=== PATIENT | female | born 1960 | race Caucasian/White ===

== ENCOUNTER → 2016-06-18 | Outpatient (CLI) | payer MEDICAID ==
[2016-06-18 08:12] LABS: Basophils # (A) 0.1 k/uL (0-0.2); Basophils % (A) 1 %; CH 32.1; CHCM 34.3; Eosinophils # (A) 0.3 k/uL (0-0.7); Eosinophils % (A) 3 %; HGB 16.8 gm/dL (11.4-16.0); Luc # (Auto) 0.15; Luc % (Auto) 2; Lymphocytes # (A) 2.5 k/uL (1.0-4.8); Lymphocytes % (A) 32 %; MCH 30.9 pg (25.0-35.0); MCHC 32.9 g/dL (31.0-37.0); Mean Platelet Volume 7.7; Monocytes # (A) 0.3 k/uL (0-1.0); Monocytes % (A) 4 %; Neutrophils # (A) 4.7 k/uL (1.3-7.7); Neutrophils % (A) 59 %; RBC 5.42 m/uL (3.80-5.40); RDW 12.9 % (11.5-15.5); WBC (Perox) 8.35
[2016-06-18 08:18] LABS: ALT 65 U/L (9-52); AST 40 U/L (14-36); Alkaline Phosphatase 59 U/L (38-126); Anion Gap 11 mmol/L; Bilirubin, Delta 0.3 mg/dL (0.0-0.2); Blood Urea Nitrogen 16 mg/dL (7-17); Calcium 9.7 mg/dL (8.4-10.2); Carbon Dioxide 23 mmol/L (22-30); Chloride 109 mmol/L (98-107); Cholesterol 214 mg/dL (<200); Glucose 101 mg/dL (74-99); HDL Cholesterol 41 mg/dL (40-60); Magnesium 1.9 mg/dL (1.6-2.3); Non-African American GFR(MDRD) >60 (>60 ml/min/1.73 sqM); Sodium 143 mmol/L (137-145); Total Bilirubin 0.6 mg/dL (0.2-1.3); Total Protein 7.5 g/dL (6.3-8.2); Triglycerides 154 mg/dL (<150)
== END | disposition home or self-care (01) ==
LOC: LABWHC1 07:38
PROVIDERS: ATTEND Family Medicine
DX: I10 Essential (primary) hypertension (principal)
CPT/HCPCS: 36415; 80053; 80061; 82248; 82306; 83735; 84439; 84443; 85025

== ENCOUNTER → 2016-11-25 | Outpatient (CLI) | payer MEDICAID ==
--- NOTE | 2016-11-25 17:18 | US ---
EXAMINATION TYPE: US venous doppler duplex LE BI DATE OF EXAM: 11/25/2016 5:06 PM COMPARISON: NONE CLINICAL HISTORY: Edema R60.0, M79.604/M79.605 Leg pain-bilateral. Bilateral leg pain SIDE PERFORMED: Bilateral TECHNIQUE: The lower extremity deep venous system is examined utilizing real time linear array sonog claudia with graded compression, doppler sonography and color-flow sonography. VESSELS IMAGED: External Iliac Vein (EIV) Common Femoral Vein Deep Femoral Vein Greater Saphenous Vein * Femoral Vein Popliteal Vein Small Saphenous Vein * Proximal Calf Veins (* superficial vessels) Right Leg: Appears negative for DVT Left Leg: Appears negative for DVT IMPRESSION: Negative exam. No evidence of deep venous thrombosis in left and right leg.
== END ==
LOC: RADUSWWP 16:31
PROVIDERS: ATTEND Family Medicine
DX: M79.604 Pain in right leg (principal); M79.605 Pain in left leg; R60.0 Localized edema
CPT/HCPCS: 93970

== ENCOUNTER → 2016-12-01 | Outpatient (CLI) | payer MEDICAID ==
--- NOTE | 2016-12-07 10:52 | P.ARTDOP ---
Arterial Doppler LOWER EXTREMITY ARTERIAL DOPPLER: DATE OF SERVICE: 12/01/2016 Reason for study: Foot pain with walking. Doppler waveforms: Multiphasic bilaterally throughout. Pulse volume recording: []. Pressure gradients: None. Ankle-brachial indices: Greater than 1 bilaterally. Toe pressures: 78 on the right, 97 on the left Impression: Normal proximal study. Some decrease in toe pressure, probably related to vasospastic phenomenon. Distal disease less likely..
== END ==
LOC: RADUSWWP 11:45
PROVIDERS: ATTEND Family Medicine
DX: R60.0 Localized edema (principal); M79.661 Pain in right lower leg
CPT/HCPCS: 93922

== ENCOUNTER → 2016-12-03 | Outpatient (CLI) | payer MEDICAID ==
[2016-12-03 09:15] LABS: Basophils % (A) 1 %; CH 31.8; CHCM 34.4; Eosinophils # (A) 0.3 k/uL (0-0.7); Eosinophils % (A) 4 %; HCT 46.7 % (34.0-46.0); HDW 2.62; HGB 15.9 gm/dL (11.4-16.0); Luc # (Auto) 0.09; Luc % (Auto) 1; Lymphocytes # (A) 2.4 k/uL (1.0-4.8); Lymphocytes % (A) 32 %; MCH 31.7 pg (25.0-35.0); MCHC 34.2 g/dL (31.0-37.0); MCV 92.9 fL (80.0-100.0); Mean Platelet Volume 7.3; Monocytes # (A) 0.3 k/uL (0-1.0); Monocytes % (A) 4 %; Neutrophils # (A) 4.4 k/uL (1.3-7.7); Neutrophils % (A) 59 %; RBC 5.02 m/uL (3.80-5.40); WBC 7.5 k/uL (3.8-10.6); WBC (Perox) 7.53
[2016-12-03 09:18] LABS: ALT 58 U/L (9-52); AST 33 U/L (14-36); Alkaline Phosphatase 58 U/L (38-126); Anion Gap 8 mmol/L; Blood Urea Nitrogen 13 mg/dL (7-17); Calcium 9.8 mg/dL (8.4-10.2); Carbon Dioxide 27 mmol/L (22-30); Chloride 107 mmol/L (98-107); Cholesterol 193 mg/dL (<200); Glucose 92 mg/dL (74-99); HDL Cholesterol 38 mg/dL (40-60); Non-African American GFR(MDRD) >60 (>60 ml/min/1.73 sqM); Potassium 4.6 mmol/L (3.5-5.1); Sodium 142 mmol/L (137-145); Total Bilirubin 0.6 mg/dL (0.2-1.3); Total Protein 7.3 g/dL (6.3-8.2)
[2016-12-03 10:05] LABS: Hepatitis C Virus IgG Ab Negative (Negative); Hepatitis C Virus IgG Index 0.09
[2016-12-03 12:49] LABS: Vitamin B12 369 pg/mL (239-931)
== END ==
LOC: LABWHC1 08:23
PROVIDERS: ATTEND Family Medicine
DX: Z00.01 Encounter for general adult medical examination with abnormal findings (principal); R60.0 Localized edema; R53.83 Other fatigue; G35 Multiple sclerosis; R00.2 Palpitations
CPT/HCPCS: 36415; 80053; 80061; 82306; 82607; 84443; 85025; 86803

== ENCOUNTER → 2017-06-10 | Outpatient (CLI) | payer MEDICAID ==
[2017-06-10 12:40] LABS: Basophils % (A) 0 %; Eosinophils # (A) 0.3 k/uL (0-0.7); Eosinophils % (A) 3 %; HCT 49.6 % (34.0-46.0); HGB 15.9 gm/dL (11.4-16.0); Lymphocytes # (A) 2.9 k/uL (1.0-4.8); Lymphocytes % (A) 30 %; MCH 29.7 pg (25.0-35.0); MCHC 32.1 g/dL (31.0-37.0); MCV 92.4 fL (80.0-100.0); Mean Platelet Volume 7.9; Monocytes # (A) 0.4 k/uL (0-1.0); Monocytes % (A) 4 %; Neutrophils # (A) 6.1 k/uL (1.3-7.7); Neutrophils % (A) 62 %; Platelet Count 260 k/uL (150-450); RBC 5.37 m/uL (3.80-5.40); RDW 13.2 % (11.5-15.5); WBC 9.8 k/uL (3.8-10.6)
[2017-06-10 12:56] LABS: Albumin 4.2 g/dL (3.5-5.0); Calcium 9.8 mg/dL (8.4-10.2); Potassium 4.3 mmol/L (3.5-5.1); Total Bilirubin 0.5 mg/dL (0.2-1.3); Total Protein 7.6 g/dL (6.3-8.2); Uric Acid 7.5 mg/dL (3.7-7.4)
[2017-06-10 16:35] LABS: Erythrocyte Sedimentation Rate 21 mm/hr (0-20)
[2017-06-10 16:59] LABS: Rheumatoid Factor 6 IU/mL (0-15)
[2017-06-10 17:08] LABS: Vitamin D 25 Hydroxy 60.3 ng/mL (30.0-100.0)
== END | disposition home or self-care (01) ==
LOC: LABWHC1 11:57
PROVIDERS: ATTEND Family Medicine
DX: I73.00 Raynaud's syndrome without gangrene (principal); M25.774 Osteophyte, right foot; R25.1 Tremor, unspecified; R60.0 Localized edema
CPT/HCPCS: 36415; 80053; 82306; 84443; 84550; 85025; 85652; 86038; 86140; 86431

== ENCOUNTER → 2017-08-12 | Outpatient (CLI) | payer MEDICAID ==
[2017-08-12 12:16] LABS: Basophils % (A) 0 %; Eosinophils # (A) 0.5 k/uL (0-0.7); Eosinophils % (A) 6 %; HCT 45.7 % (34.0-46.0); HGB 15.8 gm/dL (11.4-16.0); Lymphocytes # (A) 2.7 k/uL (1.0-4.8); Lymphocytes % (A) 31 %; MCH 32.1 pg (25.0-35.0); MCHC 34.6 g/dL (31.0-37.0); MCV 92.8 fL (80.0-100.0); Mean Platelet Volume 7.3; Monocytes # (A) 0.3 k/uL (0-1.0); Monocytes % (A) 4 %; Neutrophils # (A) 4.9 k/uL (1.3-7.7); Neutrophils % (A) 57 %; Platelet Count 210 k/uL (150-450); RBC 4.92 m/uL (3.80-5.40); RDW 13.4 % (11.5-15.5); WBC 8.6 k/uL (3.8-10.6)
[2017-08-12 13:28] LABS: Erythrocyte Sedimentation Rate 12 mm/hr (0-20)
[2017-08-12 19:54] LABS: Rheumatoid Factor 7 IU/mL (0-15)
[2017-08-14 10:00] LABS: HLA B27 POSITIVE
== END | disposition home or self-care (01) ==
LOC: LABWHC1 11:31
PROVIDERS: ATTEND Family Medicine
DX: M13.0 Polyarthritis, unspecified (principal); M79.671 Pain in right foot; G35 Multiple sclerosis
CPT/HCPCS: 36415; 85025; 85652; 86038; 86140; 86431; 86812

== ENCOUNTER → 2017-10-04 | Outpatient (CLI) | payer MEDICAID ==
--- NOTE | 2017-10-04 17:36 | MR ---
EXAMINATION TYPE: MR lumbar spine wo con DATE OF EXAM: 10/04/2017 COMPARISON: Prior lumbar spine MRI 12/10/2014 HISTORY: LBP, radiates into buttocks x 3 yrs, no trauma/surgery TECHNIQUE: Multiplanar, multisequence images of the lumbar spine were acquired. L1-L2: Left posterior paracentral disc bulge causes minimal anterolateral mass effect on the thecal s ac similar to prior exam. L2-L3: Normal disc appearance without desiccation. No herniation, protrusion or disc bulging. No ca nal stenosis is present. Foramina are patent bilaterally. L3-L4: There is no significant spinal stenosis or encroachment. Facet arthropathy is present contacti ng the lateral recesses. L4-L5: Facet arthropathy with hypertrophy ligamentum flavum contact the lateral recesses, no signific ant spinal stenosis or foraminal encroachment, no disc herniation. L5-S1: Left posterior paracentral disc bulge contacts anterior thecal sac, increased signal at the po sterior aspect of the disc compatible with small annular tear as on prior exam. Note there is no sign ificant spinal stenosis or foraminal encroachment. Lumbar segments are intact, alignment is stable. No paraspinal masses are identified. Conus medulla ris has a normal appearance. Findings are similar to previous exam. There is mild multilevel spondylo sis, endplate discogenic marrow signal change, loss of disc height signal is present at L1-2, there a re endplate Schmorl's node formations at multiple levels as on prior. IMPRESSION: Findings are essentially stable. Mild degenerative disc disease, facet arthropathy, no significant sp inal stenosis.
== END | disposition home or self-care (01) ==
LOC: RADMRIMAIN 16:38
PROVIDERS: ATTEND Family Medicine
DX: M51.36 Other intervertebral disc degeneration, lumbar region (principal); M46.96 Unspecified inflammatory spondylopathy, lumbar region
CPT/HCPCS: 72148

== ENCOUNTER → 2017-12-11 | Outpatient (CLI) | payer MEDICAID ==
[2017-12-11 12:23] VITALS: BP 125/96; PULSE 94; RESP 16
--- NOTE | 2017-12-11 12:46 | P.CONS ---
History of Present Illness - Reason for Consult Consult date: 12/11/17 - Chief Complaint Lower back pain - History of Present Illness This is a 56-year-old pleasant morbidly obese lady with history of chronic lower back pain with no radiation to the lower extremities. The pain goes across her lower back but mostly in the right buttock area. This pain gets worse by walking and sitting down however it gets better with lying down in bed. The patient failed to respond to physical therapy and chiropractor previously. She used to be on [place] however she stopped using it and now she uses marijuana 3 times a week to help with this pain. The patient denies any bowel or bladder dysfunction except for constipation. She feels some weakness in her arms and legs. She also feels numbness in her toes bilaterally. She lost a few pounds of weight recently on purpose. She has never tried interventional pain procedures on her back previously. She did have cervical fusion in 2014 for neck and arm pain, and her neck pain is doing much better now. 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 Past Medical History Past Medical History: Cancer, Hyperlipidemia, Hypertension, Musculoskeletal Disorder, Neurologic Disorder, Osteoarthritis (OA) Additional Past Medical History / Comment(s): has MS, hx. cervical cancer, numbness,tingling arms. CHRONIC BACK PAIN. 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 BILATERAL FOOT BONE SPURS. Past Anesthesia/Blood Transfusion Reactions: No Reported Reaction Smoking Status: Current every day smoker - Past Family History Mother Family Medical History: Coronary Artery Disease (CAD) Additional Family Medical History / Comment(s): parkinson's, surgical procedures to control tremors Father Family Medical History: Unable to Obtain Brother(s) Family Medical History: No Reported History Sister(s) Family Medical History: No Reported History Son(s) Family Medical History: No Reported History Medications and Allergies Home Medications Medication Instructions Recorded Confirmed Type Amitriptyline HCl 50 mg PO DAILY 12/11/17 12/11/17 History Bisacodyl [Dulcolax] 5 mg PO DIRECTED PRN 12/11/17 12/11/17 History Ergocalciferol [Vitamin D2 50,000 unit PO Q7D 12/11/17 12/11/17 History (DRISDOL)] Ibuprofen [Motrin] 800 mg PO DAILY PRN 12/11/17 12/11/17 History Multivitamin/Iron/Folic Acid 1 cap PO DAILY 12/11/17 12/11/17 History [Centrum Adults Tablet] Allergies Allergy/AdvReac Type Severity Reaction Status Date / Time No Known Allergies Allergy Verified 12/11/17 12:01 Physical Exam Vitals: Vital Signs Pulse Resp BP Pulse Ox 12/11/17 12:12 94 16 125/96 95 Intake and Output 12/10/17 12/11/17 12/11/17 22:59 06:59 14:59 Other: Weight 120.202 kg - Constitutional General appearance: morbidly obese - EENT Eyes: PERRLA - Respiratory Respiratory: bilateral: CTA - Cardiovascular Rhythm: regular Heart sounds: normal: S1, S2 - Neurologic Neuro exam of the lower extremities showed normal and symmetrical muscle strength and normal knee reflexes bilaterally however she has absent left ankle reflex and normal right ankle reflex. Straight leg raising test negative bilaterally She has tenderness in the lumbar paravertebral area and around the right sacroiliac joint. Facet loading test mildly positive. Neurologic: CNII-XII intact - Psychiatric Psychiatric: A&O x's 3, appropriate affect, intact judgment & insight Results Results: The lumbar spine MRI showed mild left foraminal encroachment at L2-3 and L5-S1 levels and also moderate disc desiccation at L5-S1 level and mild at L4 5 level. Assessment and Plan Plan: A 56-year-old morbidly obese lady with axial lower back pain most likely due to the following diagnoses: Lumbar disturbance disease Lumbar spondylosis without myelopathy Right sacroiliitis Morbid obesity Hypertension History of MRSA Bone spurs in both heels Absent left ankle reflex Numbness and tingling in both toes The patient failed to respond to physical therapy and chiropractor previously. Her lumbar spine MRI showed DDD, foraminal encroachment at the L2-3 and L5-S1 level on the left side by disc bulging. Overall, the changes of the lumbar MRI were mild to moderate with no lumbar stenosis. The patient may benefit from intervention diagnostic pain procedures including right sacral joint steroid injection under fluoroscopic guidance. If this procedure does not help the patient's pain then we can plan on doing diagnostic lumbar medial branch block bilaterally. The procedure was explained to the patient and she was agreeable to it.
== END ==
LOC: PNWHC3 11:33
PROVIDERS: ATTEND Anesthesiology
DX: M47.816 Spondylosis without myelopathy or radiculopathy, lumbar region (principal); M51.86 Other intervertebral disc disorders, lumbar region; M46.1 Sacroiliitis, not elsewhere classified; E66.01 Morbid (severe) obesity due to excess calories; I10 Essential (primary) hypertension; Z86.14 Personal history of Methicillin resistant Staphylococcus aureus infection; M77.32 Calcaneal spur, left foot; M77.31 Calcaneal spur, right foot; R20.0 Anesthesia of skin; F17.200 Nicotine dependence, unspecified, uncomplicated; Z79.899 Other long term (current) drug therapy; Z79.1 Long term (current) use of non-steroidal anti-inflammatories (NSAID)
CPT/HCPCS: 99211

== ENCOUNTER 2017-12-26 05:56 | Day surgery (SDC) | payer MEDICAID ==
[2017-12-19 12:04] VITALS: BMI 41.5
[~2017-12-26 05:56] MED LIST: LACTATED RINGERS 1,000 ML IV SCH
[2017-12-26 06:30] VITALS: TEMP 98.8
[2017-12-26] MEDS ORDERED: LIDOCAINE 1% 20 ML VIAL (10MG/ML) FOR IV START INTRADERMA ONE (06:39)
--- NOTE | 2017-12-26 07:24 | P.PCN ---
Date of Procedure: 12/26/17 Procedure(s) Performed: Procedure= Right sacral iliac joints steroid injection under fluoroscopy guidance Preoperative diagnosis= 1-Right sacroiliitis 2-lumbar degenerative disc disease 3-lumbar spondylosis with facet arthropathy Postoperative diagnosis= same as.Preop Diagnosis Complication = none Condition= stable Anesthesia= moderate sedation with intravenous Versed 2 mg , and fentanyl 50 micrograms and local infiltration with lidocaine 1% 3 mL Indication for the procedure= patient complaining of low back pain , examination was positive for severe tenderness over the sacroiliac joints bilaterally and patient diagnosed with sacroiliitis, for this reason he/ she was good candidate for sacroiliac joint steroid injection. Description of the procedure= procedure risk and benefits discussed with the patient, including but not limited, risk of infection and bleeding, and ALLERGIC reaction to the medication and not complete pain relief and patient agreed with the preceding patient taken to the operating room, placed in prone position or standard monitors applied to the patient then after induction of anesthesia back prepped with chlorhexidine 3 times , Then under strict sterile technique, the right sacroiliac joint the was identified under fluoroscopy guidance been local infiltration of the skin and subcu interstitial with lidocaine 1% then 22-gauge Quincke Needle advanced slowly under fluoroscopy and placed in the right sacroiliac joint needle placement confirmed with AP and oblique and lateral view and after appropriate needle placement confirmed and after negative aspiration, or heme , then Ropivacaine 0.5% 4 mL, and 40 mg of Kenalog mixed together and injected in the right sacroiliac joint after negative aspiration patient tolerated the procedure well without any complication.
[2017-12-26] MEDS ORDERED: IV FLUID CONTINUATION 1,000 ML IV ONE (07:28)
[2017-12-26 07:32] VITALS: RESP 16
[2017-12-26 07:47] VITALS: BP 105/77; PULSE 82
--- NOTE | 2017-12-26 08:20 | FL ---
EXAMINATION TYPE: FL guided pain mgmt statistic DATE OF EXAM: 12/26/2017 CLINICAL HISTORY: Low back and sacroiliac joint pain. TECHNIQUE: Fluoroscopy. COMPARISON: None. FINDINGS: Fluoroscopic guidance was provided during pain relief procedure performed by Dr. Sellers . A total of 6 seconds of fluoroscopic time was utilized during the procedure and single spot image is acquired. Single image acquired shows needle localization at level of sacroiliac joint. IMPRESSION: As Above.
== END 2017-12-26 08:03 | disposition home or self-care (01) ==
LOC: ORPAIN 05:56
PROVIDERS: ATTEND Specialist
DX: M46.1 Sacroiliitis, not elsewhere classified (principal); M51.36 Other intervertebral disc degeneration, lumbar region; M47.816 Spondylosis without myelopathy or radiculopathy, lumbar region; I10 Essential (primary) hypertension; F17.200 Nicotine dependence, unspecified, uncomplicated; Z86.14 Personal history of Methicillin resistant Staphylococcus aureus infection; F41.9 Anxiety disorder, unspecified
CPT/HCPCS: 27096; J2250; J3301; J3010

== ENCOUNTER 2018-01-11 09:37 | Day surgery (SDC) | payer MEDICAID ==
[2018-01-05 13:40] VITALS: BMI 41.5
[~2018-01-11 09:37] MED LIST changes: -LACTATED RINGERS 1,000 ML IV SCH; +SODIUM CHLORIDE 0.9% 500 ML 500 ML IV SCH
[2018-01-11 10:38] VITALS: RESP 16; TEMP 97.6
--- NOTE | 2018-01-11 12:02 | FL ---
EXAMINATION TYPE: FL guided pain mgmt statistic DATE OF EXAM: 01/11/2018 COMPARISON: NONE HISTORY: Sacroiliac joint pain TECHNIQUE: Fluoroscopy. FINDINGS/ IMPRESSION: Fluoroscopic guidance was provided during procedure performed by Dr. Subramanian. A total o f 6 seconds of fluoroscopic time was utilized during the procedure and 1 spot images was acquired dur ing a right sacroiliac joint injection.
[2018-01-11 12:03] VITALS: BP 114/62; PULSE 90
--- NOTE | 2018-01-11 12:12 | P.PCN ---
Date of Procedure: 01/11/18 Surgeon: Michelle Subramanian Pathology: none sent Condition: stable Disposition: PACU Description of Procedure: Preoperative diagnoses= sacroiliac joint dysfunction and sacroiliitis on the Rt side Postoperative diagnoses= same as preoperative diagnosis. Procedure= sacroiliac joint steroid injection under fluoroscopic guidance. Anesthesia= local anesthesia with lidocaine 1% and IV moderate conscious sedation with fentanyl and Versed Estimated blood loss=minimal. Procedure indication= the patient had a history of severe chronic low back pain , diagnosed with sacroiliitis and lumbar sacral facet arthropathy unresponsive to conservative treatment. Procedure description= the patient was seen and identified in the preoperative holding area, risks and benefits and alternative of the procedure and possible complications discussed with the patient, patient signed the consent. an IV was started, and vital signs were monitored and were stable throughout the procedure , patient was placed in the prone position or table and the lumbosacral area was prepped and draped with a sterile fashion, vital signs were closely monitored during the procedure.The sacroiliac joint was identified on the AP view of fluoroscopy then the C-arm was tilted to the contralateral(left) oblique position to superimpose the anterior and posterior joint lines on each other and to have a unified joint line with the target point at the inferior one third of this line. I used 22-gauge 3-1/2 inch Quincke spinal needle for this procedure and after getting into the sacroiliac joint I injected 40 mg of Kenalog +2 MLS of Ropivacaine 0.5%. Patient tolerated the procedure well without any complication, The patient returned to supine position after the back was cleaned and a Band- Aid applied, the patient transported to recovery room in stable condition and he was monitored for 30 minutes before he was discharged home and then patient was reexamined before going home and patient was discharged in stable condition and patient will follow up with the pain clinic in a few weeks
== END 2018-01-11 12:15 | disposition home or self-care (01) ==
LOC: ORPAIN 09:37
PROVIDERS: ATTEND Anesthesiology
DX: G89.29 Other chronic pain (principal); M46.1 Sacroiliitis, not elsewhere classified; M46.97 Unspecified inflammatory spondylopathy, lumbosacral region; E66.01 Morbid (severe) obesity due to excess calories; Z68.41 Body mass index [BMI] 40.0-44.9, adult
CPT/HCPCS: 27096; J2250; J3301; J3010

== ENCOUNTER → 2018-02-12 | Outpatient (CLI) | payer MEDICAID ==
[2018-02-12 13:33] VITALS: BP 133/86; PULSE 106; RESP 16
--- NOTE | 2018-02-12 14:00 | P.PAINPG ---
Subjective Progress Note Date: 02/12/18 This is visit for this 57-year-old pleasant lady with history of chronic lower back pain with no radiation to the lower extremities. The pain goes across her lower back but mostly in the right buttock area. We have done right- sided sacroiliac joint steroid injections 2 , she reported that she had more than 70% improvement in her low back pain after the right sacroiliac joint steroid injections , the pain level dropped from 5-6/10-2/10 after each injection, patient report over the last few days she started complaining of shortness of breath, any activity - Constitutional General appearance: morbidly obese - EENT Eyes: PERRLA - Respiratory= Rhonchi left side , clear to auscultation on the right side - Cardiovascular Rhythm: regular Heart sounds: normal: S1, S2 - Neurologic Neuro exam of the lower extremities showed normal and symmetrical muscle strength and normal knee reflexes bilaterally however she has absent left ankle reflex and normal right ankle reflex. Straight leg raising test negative bilaterally She has tenderness in the lumbar paravertebral area and around the right sacroiliac joint. Facet loading test mildly positive. Neurologic: CNII-XII intact - Psychiatric Psychiatric: A&O x's 3, appropriate affect, intact judgment & insight Result The lumbar spine MRI showed mild left foraminal encroachment at L2-3 and L5-S1 levels and also moderate disc desiccation at L5-S1 level and mild at L4 5 level. Assessment and Plan A 56-year-old morbidly obese lady with axial lower back pain most likely due to the following diagnoses: Lumbar disturbance disease Lumbar spondylosis without myelopathy Right sacroiliitis Morbid obesity Patient had a good result after right-sided sacroiliac steroid injection , but she get benefit only for short-term benefit, she will be good candidate for radiofrequency ablation of the right sacroiliac joint, radiofrequency ablation of right-sided L5-S1 dorsal ramus , and right side radiofrequency of the lateral branches S1-S2 and S3 Complaint of shortness of breath, and exam showed left side Rales , which could be secondary to bronchitis versus pneumonia, he shouldn't will be referred to see emergency room for evaluation Objective - Vital Signs Vital signs: Vital Signs Temp Pulse 106 H 02/12/18 13:21 Resp 16 02/12/18 13:21 BP 133/86 02/12/18 13:21 Pulse Ox 97 02/12/18 13:21 Intake & Output 02/11/18 02/12/18 02/12/18 18:59 06:59 18:59 Weight 120.202 kg PQRS Measure Charge Sheet Measure #130: Documentation of Current Meds in Medical Chart: Patient's medications documented in chart Measure #226: Tobacco Use: Screen & Cessation Intervention: Pt screened for tobacco use AND intervention given Measure #111: Pneumonia Vaccination: Pneumococcal vaccine NOT administered or previously given Measure #47: Advance Care Plan: Advance care planning discussed & documented, pt chose/unable to give Measure #412: Opioid Treatment Agreement: No documentation of signed opioid treatment agreement Measure #408: Opioid Therapy Follow-up Evaluation: Patient had NO f/u eval minimum every 3 months during opioid therapy Measure #317: Preventitive Care & Scrn High Bld Press & F/U: Normal blood pressure, f/u not required Measure #128: Body Mass Index (BMI) Screening & Follow-up: BMI documented ABOVE normal parameters - f/u documented Measure #131: Pain Assessment & Follow-up: Pain positive & plan documented, Follow-up scheduled Measure #431: Unhealthy Alcohol Use Preventative Care & Scrn: Patient not identified as an unhealthy alcohol user PQRS Narrative: Smoking Status Current every day smoker Do You Want the Pneumonia No Vaccine AT THIS TIME? Blood Pressure 133/86 Pain Intensity [Bilateral 6 Posterior Medial Flank] Pain Intensity [Right Lower 6 Back] Scale Used Numeric (1 - 10) Hx Alcohol Use (MH) Yes: OCCASIONAL. Home Medications: Ambulatory Orders Amitriptyline HCl 50 mg PO HS 12/11/17 Bisacodyl [Dulcolax] 5 mg PO HS 12/11/17 Ergocalciferol [Vitamin D2 (DRISDOL)] 50,000 unit PO FR 12/11/17 Ibuprofen [Motrin] 800 mg PO DAILY PRN 12/11/17 Controlled Substance Measures - Controlled Substance Measures Is patient prescribed a controlled substance at discharge?: No When asked, does pt state using other controlled substances?: No If prescribed controlled substance>3 days was MAPS reviewed?: No If Rx opioid, was Start Talking consent form obtained?: No If opioid is for acute pain is fill amount 7 days or less?: No Was information provided regarding opioid addiction?: No
== END ==
LOC: PNWHC3 13:07
PROVIDERS: ATTEND Specialist
DX: M47.816 Spondylosis without myelopathy or radiculopathy, lumbar region (principal); M46.1 Sacroiliitis, not elsewhere classified; M51.86 Other intervertebral disc disorders, lumbar region; E66.01 Morbid (severe) obesity due to excess calories; F17.200 Nicotine dependence, unspecified, uncomplicated; Z79.899 Other long term (current) drug therapy; Z79.1 Long term (current) use of non-steroidal anti-inflammatories (NSAID)
CPT/HCPCS: 99211